=== PATIENT | female | born 1975 | race African-American/Black ===

== ENCOUNTER 2019-09-27 10:20 | Emergency (ER) | payer OTHER, SELFPAY ==
--- NOTE | ~2019-09-27 | XR_ITS ---
EXAMINATION: XR chest 1V portable DATE: 09/27/2019 10:48 INDICATION: Cough TECHNIQUE: frontal view of the chest was obtained. COMPARISON: None FINDINGS: The lungs are clear with no focal airspace opacities, pulmonary edema, pleural effusion or pneumothor ax. The cardiomediastinal silhouette is normal. Visualized bones and soft tissues are unremarkable. IMPRESSION: 1. No acute cardiopulmonary disease. Reviewed, dictated and finalized at location A.
[2019-09-27 10:25] VITALS: BP 117/79; PULSE 96; RESP 18; TEMP 37.1; O2SAT 100
--- NOTE | 2019-09-27 10:44 | ED.GENADULT ---
HPI - General Adult General Chief complaint: Upper Respiratory Infection Stated complaint: ST Time Seen by Provider: 09/27/19 10:24 Source: patient and family Mode of arrival: ambulatory Limitations: no limitations History of Present Illness HPI narrative: Patient is a 44-year-old female who presents to emergency department with upper respiratory infections x1 week with sore throat congestion rhinorrhea productive cough of green phlegm denies any dyspnea fever chills nausea vomiting is taken [id number] medications with minimal improvement denies any sick contacts on arrival is in the room in no distress Related Data Home Medications Medication Instructions Recorded Confirmed Daily Multiple Vitamins/Iron 09/27/19 Allergies Allergy/AdvReac Type Severity Reaction Status Date / Time No Known Allergies Allergy Verified 09/27/19 10:32 Review of Systems Review of Systems: All systems reviewed & are unremarkable except as noted in HPI and below PMFSH Social History Social History Gender identity (if verbalized by the patient): Female Exam Narrative: Exam Narrative: GENERAL: Well-appearing, well-nourished, and in no acute distress. HEAD: Normocephalic, atraumatic. EYES: PERRLA and EOMI. ENT: Nares clear, no rhinorrhea or epistaxis. Mucous membranes moist. Oropharynx with tonsillar hypertrophy and without exudate or other lesions. NECK: Supple. No adenopathy or masses. CHEST: Clear to auscultation. No respiratory distress. No wheezes rales or rhonchi HEART: Regular rate and rhythm. No murmur heard. EXTREMITIES: Normal range of motion. No edema. SKIN: Warm, dry, no rash. NEURO: No focal deficits. Alert and oriented x3. PSYCH: Normal mood and affect. Course Course Emergency Course: Patient in the room in no distress aware of case findings treatment plan and diagnosis agreeing to follow-up as directed Vital Signs Vital signs: Vital Signs Temperature 98.7 F 09/27/19 10:25 Pulse Rate 96 09/27/19 10:25 Respiratory Rate 18 09/27/19 10:25 Blood Pressure 117/79 09/27/19 10:25 Pulse Oximetry 100 09/27/19 10:25 Temperature 98.7 F 09/27/19 10:25 Pulse Rate 96 09/27/19 10:25 Respiratory Rate 18 09/27/19 10:25 Blood Pressure 117/79 09/27/19 10:25 Pulse Oximetry 100 09/27/19 10:25 Medical Decision Making MDM Narrative Medical decision making narrative: Patient with likely viral syndrome afebrile nontoxic appearing no pneumonia seen in the room in no distress felt appropriate for outpatient reevaluation advised to self quarantine due to the viral nature and risk for potential coinfection advised also to follow with primary care and given reasons to return Vital Signs Vital Signs: Vital Signs Temperature 98.7 F 09/27/19 10:25 Pulse Rate 96 09/27/19 10:25 Respiratory Rate 18 09/27/19 10:25 Blood Pressure 117/79 09/27/19 10:25 Pulse Oximetry 100 09/27/19 10:25 Temperature 98.7 F 09/27/19 10:25 Pulse Rate 96 09/27/19 10:25 Respiratory Rate 18 09/27/19 10:25 Blood Pressure 117/79 09/27/19 10:25 Pulse Oximetry 100 09/27/19 10:25 Lab Data Labs: Strep Screen Presumptive Negative *(Reference Range: Negative)* Imaging Data Radiologist's impression: ITS Impressions Chest X-Ray 09/27/19 10:53 IMPRESSION: 1. No acute cardiopulmonary disease. Discharge Plan Discharge Clinical Impression: Upper respiratory infection Patient Disposition: Home, Self-Care Condition: Stable Instructions: Antibiotic Form, Upper Respiratory Infection (ED) Additional Instructions: Follow up with your primary care provider within 7-14 days. Go to ER for shortness of breath, difficulty breathing, chest pain, fever/chills, weakness, nauseau/vomitting, etc. or any other concerns. You may want to consider self quarantine for at least 14 days Take an
--- NOTE | 2019-09-27 10:58 | PC.NURSE ---
Hand off report given to ELE Chandra, transferring care at this time.
== END 2019-09-27 11:50 | disposition home or self-care (01) ==
PROVIDERS: Emergency Provider Emergency Medicine
DX: J06.9 Acute upper respiratory infection, unspecified (principal)
CPT/HCPCS: 71045; 87081; 87880; 99283

== ENCOUNTER 2019-10-13 12:08 | Emergency (ER) | payer OTHER, SELFPAY ==
--- NOTE | ~2019-10-13 | XR_ITS ---
EXAMINATION: XR chest 1V portable INDICATION: Chest congestion TECHNIQUE: Portable AP chest at 1250 hours COMPARISON: 09/27/2019 FINDINGS: The lungs are free of acute opacities. There is no pleural effusion or pneumothorax. The ca rdiomediastinal silhouette is normal. The visualized bones and soft tissues are unremarkable. IMPRESSION: 1. No acute cardiopulmonary abnormality. Reviewed, dictated and finalized at location A.
[2019-10-13 12:19] VITALS: BP 120/91; PULSE 84; RESP 20; TEMP 37.4; O2SAT 100
[2019-10-13 12:52] LABS: Basophils Percent Auto 0.1 % (0.2-1.2); Eosinophils Absolute Auto 0.1 K/mm3 (0-0.3); Eosinophils Percent Auto 0.7 % (0-4.4); Hematocrit 35.4 % (37.0-47.0); Hemoglobin 11.8 g/dL (12.0-15.0); Immature Granulocyte Absolute 0.04 K/mm3 (0.00-0.031); Immature Granulocyte Percent A 0.5 % (0-0.5); Mean Corpuscular HGB Conc 33.3 g/dl (32-36); Mean Corpuscular Hemoglobin 29.5 pg (26-34); Mean Corpuscular Volume 88.5 fl (80-100); Monocytes Absolute Auto 0.5 K/mm3 (0.1-0.6); Monocytes Percent Auto 5.6 % (2.6-8.5); Neutrophils Absolute Auto 5.6 K/mm3 (1.3-6.7); Neutrophils Percent Auto 65.1 % (45.5-73.1); Platelet Count Result 339 k/mm3 (150-375); Red Cell Distribution Width 13.5 % (11.5-14.5); White Blood Count 8.6 K/mm3 (4.5-10.0)
[2019-10-13 13:06] LABS: Blood Urea Nitrogen 9 mg/dL (7-17); Calcium 9.2 mg/dL (8.4-10.2); Carbon Dioxide 25 mmol/L (22-30); Chloride 106 mmol/L (98-107); Estimated CRCL calculation 147 ml/min; Estimated Glomerular Filt Rate > 60; Glucose 103 mg/dL (65-105); Sodium 137 mmol/L (137-145)
--- NOTE | 2019-10-13 13:53 | ED.GENADULT ---
HPI - General Adult General Chief complaint: Shortness of Breath/Dyspnea Stated complaint: SOB Time Seen by Provider: 10/13/19 12:24 Source: patient Mode of arrival: ambulatory Limitations: no limitations History of Present Illness HPI narrative: 44-year-old with no major medical problems here with complaints of sore throat, nonproductive cough for 2 weeks. She states that she has occasional shortness of breath. She denies any nausea or vomiting. Onset (ago): week(s) (2) Severity: mild Associated symptoms: cough Treatments prior to arrival: none Related Data Home Medications Medication Instructions Recorded Confirmed Daily Multiple Vitamins/Iron 1 tab-cap PO DAILY 09/27/19 ergocalciferol (vitamin D2) PO WEEKLY 10/13/19 [Drisdol] ferrous sulfate 325 mg PO BID 10/13/19 Allergies Allergy/AdvReac Type Severity Reaction Status Date / Time No Known Allergies Allergy Verified 10/13/19 12:25 Review of Systems Review of Systems: All systems reviewed & are unremarkable except as noted in HPI and below Constitutional: Constitutional: Reports no additional constitutional complaints Eyes: Eyes: Reports no additional eye complaints ENT: Reports sore throat Cardiovascular: Cardiovascular: Reports no additional cardiovascular complaints Respiratory: Respiratory: Reports cough Gastrointestinal: Gastrointestinal: Reports no additional gastrointestinal complaints Integumentary/Breasts: Skin/Breast: Reports system reviewed and no additional complaints, except as docu Neurologic: Reports system reviewed and no additional complaints, except as documented Allergic/Immunologic: Allergic/Immunologic: Reports no additional allergic/immunologic complaints PMFSH Social History Social History Gender identity (if verbalized by the patient): Female Exam Narrative: Exam Narrative: GENERAL: Well-appearing, well-nourished, and in no acute distress. HEAD: Normocephalic, atraumatic. EYES: PERRLA and EOMI. ENT: Nares clear, . Mucous membranes moist. NECK: Supple. CHEST: Clear to auscultation. No respiratory distress. HEART: Regular rate and rhythm. No murmur heard. Normal peripheral pul. EXTREMITIES: Normal range of motion. No edema. SKIN: Warm, dry, no rash. NEURO: No focal deficits. Alert and oriented x3. PSYCH: Normal mood and affect. Course Course Emergency Course: Inform patient about her lab work, x-ray findings. Patient is requesting for Covid testing. Vital Signs Vital signs: Vital Signs Temperature 37.4 C 10/13/19 12:19 Pulse Rate 84 10/13/19 12:19 Respiratory Rate 20 10/13/19 12:19 Blood Pressure 120/91 H 10/13/19 12:19 Pulse Oximetry 100 10/13/19 12:19 Temperature 37.4 C 10/13/19 12:19 Pulse Rate 84 10/13/19 12:19 Respiratory Rate 20 10/13/19 12:19 Blood Pressure 120/91 H 10/13/19 12:19 Pulse Oximetry 100 10/13/19 12:19 Medical Decision Making Vital Signs Vital Signs: Vital Signs Temperature 37.4 C 10/13/19 12:19 Pulse Rate 84 10/13/19 12:19 Respiratory Rate 20 10/13/19 12:19 Blood Pressure 120/91 H 10/13/19 12:19 Pulse Oximetry 100 10/13/19 12:19 Temperature 37.4 C 10/13/19 12:19 Pulse Rate 84 10/13/19 12:19 Respiratory Rate 10/13/19 12:19 Blood Pressure 120/91 H 10/13/19 12:19 Pulse Oximetry 100 10/13/19 12:19 Lab Data Result diagrams: 10/13/19 12:38 10/13/19 12:38 Labs: Lab Results 10/13/19 10/13/19 10/13/19 Range/Units 12:38 12:38 13:48 WBC 8.6 (4.5-10.0) K/mm3 RBC 4.00 L (4.2-5.4) M/mm3 Hgb 11.8 L (12.0-15.0) g/dL Hct 35.4 L (37.0-47.0) % MCV 88.5 (80-100) fl MCH 29.5 (26-34) pg MCHC 33.3 (32-36) g/dl RDW 13.5 (11.5-14.5) % Plt Count 339 (150-375) k/mm3 MPV 9.0 (7.4-10.4) fl Immature Gran % (Auto) 0.5 (0-0.5) % Neut % (Auto) 65.1 (45.5-73.1) % Lymph % (Au
[2019-10-13 14:44] VITALS: BP 117/66; PULSE 60; RESP 20; O2SAT 99
[2019-10-14 13:30] LABS: SARS-CoV-2 RNA PCR Negative
== END 2019-10-13 14:32 | disposition home or self-care (01) ==
PROVIDERS: Emergency Provider Family Medicine
DX: B34.9 Viral infection, unspecified (principal); Z20.828 Contact with and (suspected) exposure to other viral communicable diseases
CPT/HCPCS: 36415; 71045; 80048; 85025; 87635; 99283; C9803; U0003

== ENCOUNTER 2019-10-21 09:16 | Emergency (ER) | payer OTHER, SELFPAY ==
--- NOTE | ~2019-10-21 | XR_ITS ---
EXAMINATION: XR shoulder RT min 2V DATE: 10/21/2019 09:58 INDICATION: Right shoulder pain TECHNIQUE: AP internally and externally rotated, AP oblique externally rotated and transscapular Y vi ews of the right shoulder were obtained. COMPARISON: None FINDINGS: Normal alignment. No fracture. Glenohumeral joint is normal. Acromioclavicular joint is normal. Soft tissues are unremarkable. Visualized portion of the right lung are clear. IMPRESSION: Negative right shoulder radiographs. Reviewed, dictated and finalized at location A.
--- NOTE | ~2019-10-21 | XR_ITS ---
EXAMINATION:XR cervical spine 4-5V DATE: 10/21/2019 09:54 INDICATION: Posterior neck pain radiating to the right shoulder TECHNIQUE: AP, lateral, lateral swimmers and odontoid views of the cervical spine are provided. COMPARISON: None FINDINGS: Alignment is normal. Odontoid is intact. Normal atlantoaxial interval. Vertebral body heights are no rmal. Disc heights are normal. Small anterior endplate osteophytes and mild uncovertebral osteoarthri tis at C3-C4 through C5-C6. No significant facet osteoarthritis. Central canal appears widely patent. Prevertebral soft tissues are normal. Was utilized apices of lungs are clear. IMPRESSION: 1. Minimal cervical spondylosis. Reviewed, dictated and finalized at location A.
[2019-10-21 09:22] VITALS: BP 112/81; PULSE 92; RESP 118; TEMP 36.5; O2SAT 100
--- NOTE | 2019-10-21 09:30 | ECG_ITS ---
Measurements Intervals [place] Rate: 88 P: 68 MA: 133 QRS: 57 QRSD: 84 T: 48 QT: 346 QTc: 419 Interpretive Statements SINUS RHYTHM POSSIBLE LEFT ATRIAL ENLARGEMENT BORDERLINE T WAVE ABNORMALITY- ANTERIOR LEADS BASELINE ARTIFACT- I, III, AVL BORDERLINE ECG Electronically Signed On 10-21-2019 10:09:17 CDT by Ruddy Garnica D.O.
--- NOTE | 2019-10-21 10:54 | ED.GENADULT ---
HPI - General Adult General Chief complaint: Neck Pain/Injury Stated complaint: neck pain Time Seen by Provider: 10/21/19 09:21 Source: patient and family Mode of arrival: ambulatory Limitations: no limitations History of Present Illness HPI narrative: 44-year-old with no major medical problems here with complaints of right shoulder and neck pain for past few days. She states that she was here for the same a week ago. She denies any trauma denies any lifting injuries. She says she her shoulder keeps popping. She denies any shortness of breath or chest pain at this time. Onset (ago): week(s) (1) Location: neck Radiation: extremity (Right shoulder) Severity: moderate Severity scale (1-10): 5 Quality: aching Relieving factors: none Exacerbating factors: movement Related Data Home Medications Medication Instructions Recorded Confirmed Daily Multiple Vitamins/Iron 1 tab-cap PO DAILY 09/27/19 ergocalciferol (vitamin D2) PO WEEKLY 10/13/19 [Drisdol] ferrous sulfate 325 mg PO BID 10/13/19 Allergies Allergy/AdvReac Type Severity Reaction Status Date / Time No Known Allergies Allergy Verified 10/21/19 09:31 Review of Systems Review of Systems: All systems reviewed & are unremarkable except as noted in HPI and below Constitutional: Constitutional: Reports no additional constitutional complaints Eyes: Eyes: Reports no additional eye complaints ENT: Reports system reviewed and no additional complaints, except as documented Cardiovascular: Cardiovascular: Reports no additional cardiovascular complaints Respiratory: Respiratory: Reports no additional respiratory complaints Musculoskeletal: Musculoskeletal: Reports as per HPI Neurologic: Reports system reviewed and no additional complaints, except as documented PMFSH Social History Social History Gender identity (if verbalized by the patient): Female Exam Narrative: Exam Narrative: GENERAL: Well-appearing, well-nourished, and in no acute distress. HEAD: Normocephalic, atraumatic. EYES: PERRLA and EOMI. ENT: Nares clear, no rhinorrhea or epistaxis. Mucous membranes moist. NECK: Supple. No cervical veretebral tenderness CHEST: Clear to auscultation. No respiratory distress. HEART: Regular rate and rhythm. No murmur heard. Normal peripheral pulses. EXTREMITIES: Normal range of motion. No edema. Right shoulder normal range of motion, no deformity noted SKIN: Warm, dry, no rash. NEURO: No focal deficits. Alert and oriented x3. PSYCH: Normal mood and affect. Course Course Emergency Course: Informed patient about x-ray advised her to take pain medication as prescribed. Follow-up with her primary doctor. Vital Signs Vital signs: Vital Signs Temperature 36.5 C 10/21/19 09:22 Pulse Rate 92 10/21/19 09:22 Respiratory Rate 118 H 10/21/19 09:22 Blood Pressure 112/81 10/21/19 09:22 Pulse Oximetry 100 10/21/19 09:22 Temperature 36.5 C 10/21/19 09:22 Pulse Rate 92 10/21/19 09:22 Respiratory Rate 118 H 10/21/19 09:22 Blood Pressure 112/81 10/21/19 09:22 Pulse Oximetry 100 10/21/19 09:22 Medical Decision Making Vital Signs Vital Signs: Vital Signs Temperature 36.5 C 10/21/19 09:22 Pulse Rate 92 10/21/19 09:22 Respiratory Rate 118 H 10/21/19 09:22 Blood Pressure 112/81 10/21/19 09:22 Pulse Oximetry 100 10/21/19 09:22 Temperature 36.5 C 10/21/19 09:22 Pulse Rate 92 10/21/19 09:22 Respiratory Rate 118 H 10/21/19 09:22 Blood Pressure 112/81 10/21/19 09:22 Pulse Oximetry 100 10/21/19 09:22 ECG Data EKG #1: ECG completion date: 10/21/19 ECG completion time: 09:27 EKG Interpretation: normal rate (88), no ectopy, no ST changes, normal QRS and normal QT Discharge Plan Discharge Clinical Impression: Cervical radiculopathy Patient Disposition: Still a Patient Condition: Stable Instructions: Cervica
--- NOTE | 2019-10-21 10:55 | PC.NURSE ---
pt report given to melissa chu at this time, she has assumed pt care.
[2019-10-21 11:04] VITALS: BP 130/83; PULSE 81; RESP 20; O2SAT 99
[2019-10-21 11:29] VITALS: BP 138/75; PULSE 78; RESP 16; O2SAT 100
== END 2019-10-21 11:30 | disposition home or self-care (01) ==
PROVIDERS: Emergency Provider Family Medicine
DX: M47.22 Other spondylosis with radiculopathy, cervical region (principal); R94.31 Abnormal electrocardiogram [ECG] [EKG]
CPT/HCPCS: 72050; 73030; 93005; 99284